=== PATIENT | male | born 1975 | race Caucasian/White ===

== ENCOUNTER 2020-03-20 08:09 | Outpatient (CLI) | payer BC ==
[2020-03-20] MEDS ORDERED: LORA10TA75 PO (09:28)
[2020-03-20] MEDS ORDERED: ZOLM2.5T31 PO (09:28)
[2020-03-20] MEDS ORDERED: MULT-449 PO (09:28)
[2020-03-20] MEDS ORDERED: GLUC1TAB91 PO (09:28)
== END 2020-03-20 23:59 | disposition home or self-care (01) ==
LOC: STAR 08:09
PROVIDERS: ATTEND Thoracic Surgery (Cardiothoracic Vascular Surgery)
DX: Z02.9 Encounter for administrative examinations, unspecified (principal)

== ENCOUNTER → 2020-03-22 | Outpatient (CLI) | payer BC ==
[~2020-03-22] MED LIST: GLUC1TAB91 PO; LORA10TA75 PO; MULT-449 PO; ZOLM2.5T31 PO
== END | disposition home or self-care (01) ==
LOC: STAR 13:47
PROVIDERS: ATTEND Anesthesiology
DX: Z01.812 Encounter for preprocedural laboratory examination (principal); Z20.828 Contact with and (suspected) exposure to other viral communicable diseases
CPT/HCPCS: 36415; 87635

== ENCOUNTER 2020-03-27 06:10 | Day surgery (SDC) | payer BC ==
[2020-03-20 09:04] VITALS: BP 117/78
[~2020-03-27] VITALS: Ht 177.8 cm; Wt 83.5 kg
[2020-03-27] MEDS ORDERED: LACTATED RINGERS 1,000 ML IV SCH ×2 (06:34→09:00)
[2020-03-27] MEDS ORDERED: FENTANYL PF 250 MCG/5ML ONE (06:42)
[2020-03-27] MEDS ORDERED: MIDAZOLAM 1 MG/ML, 2ML ONE (06:42)
[2020-03-27] MEDS ORDERED: CEFAZOLIN 1,000 MG ONE (06:45)
[2020-03-27] MEDS ORDERED: PROPOFOL 10 MG/ML, 20ML ONE (06:45)
[2020-03-27] MEDS ORDERED: PHENYLEPHRINE 10 MG/ML ONE (06:45)
[2020-03-27] MEDS ORDERED: NEOSTIGMINE 1 MG/ML, 10ML ONE (06:45)
[2020-03-27] MEDS ORDERED: ROCURONIUM 10MG/ML,5ML ONE (06:45)
[2020-03-27] MEDS ORDERED: GLYCOPYRROLATE 0.2MG/1ML, 5ML ONE (06:45)
[2020-03-27] MEDS ORDERED: CHLORHEXIDINE 15 ML UDC MM ONE (07:00)
[2020-03-27] MEDS ORDERED: BUPIVACAINE/PF 0.5% ONE (07:00)
[2020-03-27] MEDS ORDERED: EPINEPHRINE 1 MG/ML, 1ML ONE (07:00)
[2020-03-27] MEDS ORDERED: hydrALAzine 20 MG/ML, 1ML IV PRN (07:30)
[2020-03-27] MEDS ORDERED: OXYcodone 5 MG/5 ML ORAL.SOL UDC PO PRN (07:30)
[2020-03-27] MEDS ORDERED: MEPERIDINE/PF 25MG/0.5ML IVPush PRN (07:30)
[2020-03-27] MEDS ORDERED: LABETALOL 5MG/ML, 20ML IV PRN (07:30)
[2020-03-27] MEDS ORDERED: ONDANSETRON 2MG/ML, 2ML IVPush PRN ×2 (07:30→08:30)
[2020-03-27] MEDS ORDERED: morphine SULFATE 10 MG/ML, 1ML IVPush PRN ×2 (07:30→08:30)
[2020-03-27] MEDS ORDERED: HYDROmorphone 1 MG/ML, 1ML INJ IVPush PRN (07:30)
[2020-03-27] MEDS ORDERED: ACETAMINOPHEN 325 MG TABLET PO PRN (07:30)
[2020-03-27] MEDS ORDERED: FENTANYL PF 100 MCG/2ML IV PRN (07:30)
[2020-03-27] MEDS ORDERED: BUPIVACAINE/PF-EPI 0.5% 1:200K INFIL ONE (07:45)
[2020-03-27] MEDS ORDERED: SUGAMMADEX 200 MG/2 ML IVPush ONE (08:00)
[2020-03-27] MEDS ORDERED: MEPERIDINE/PF 25MG/ML,1ML ONE (08:19)
[2020-03-27] MEDS ORDERED: HYDROcodone/APAP 5/325 TABLET PO PRN (08:30)
[2020-03-27] MEDS ORDERED: KETOROLAC 30 MG/1 ML IVPush PRN ×2 (08:30→09:00)
[2020-03-27] MEDS ORDERED: KETOROLAC 30 MG/1 ML ONE (08:59)
== END 2020-03-27 10:48 | disposition home or self-care (01) ==
LOC: OUT 06:10
PROVIDERS: ATTEND Thoracic Surgery (Cardiothoracic Vascular Surgery)
DX: K40.90 Unilateral inguinal hernia, without obstruction or gangrene, not specified as recurrent (principal); G43.909 Migraine, unspecified, not intractable, without status migrainosus; F32.9 Major depressive disorder, single episode, unspecified; Z90.49 Acquired absence of other specified parts of digestive tract; Z98.52 Vasectomy status; Z79.899 Other long term (current) drug therapy; Z87.891 Personal history of nicotine dependence
CPT/HCPCS: 49650; C1727; C1781; J0171; J0690; J1885; J2175; J2250; J2370; J2704; J2710; J3010; J7120